=== PATIENT | female | born 1985 | race Caucasian/White ===

== ENCOUNTER 2020-07-31 18:29 | Emergency (ER) | payer MEDICAID, SELFPAY ==
[2020-07-31] VITALS (9 sets, daily range): BP systolic 121–173; BP diastolic 0–98; PULSE 80–112; RESP 14–18; TEMP 36.6–37.1; O2SAT 97–100; BMI 42.3; BMI 42.0
--- NOTE | 2020-07-31 18:45 | XR_ITS ---
PROCEDURE INFORMATION: Exam: XR Right Ankle Exam date and time: 07/31/2020 6:45 PM Age: 34 years old Clinical indication: Injury or trauma; Fall; Blunt trauma; Right; Patient HX: Twisted ankle 1 hour ago. Pain to medial leg TECHNIQUE: Imaging protocol: XR Right ankle. Views: 3 or more views. COMPARISON: No relevant prior studies available. FINDINGS: Bones/joints: There is a fracture of the mediolateral and posterior malleolus with posterior dislocation of the foot and large amount of soft tissue swelling. Soft tissues: Soft tissue swelling is seen. IMPRESSION: There is a fracture of the mediolateral and posterior malleolus with posterior dislocation of the foot and large amount of soft tissue swelling.
--- NOTE | 2020-07-31 19:03 | HMH.EDUTC ---
[facility] Disposition Clinical Impression: Ankle fracture Qualifiers: Encounter type: initial encounter Fracture type: closed Laterality: right Qualified Code(s): S82.891A - Other fracture of right lower leg, initial encounter for closed fracture Disposition: Still a Patient Condition on Discharge: Good Instructions: DI for Moderate Sedation Referrals: Provider,Referral, MD [Primary Care Provider] - Time of Disposition: 19:08 Medical Decision Making - Jesus Inquiry Pt receiving controlled substance: No Jesus was queried for this patient: No Vital Signs: 07/31/20 18:30 07/31/20 18:52 Temperature 98.8 F 98.8 F Temperature Source Oral Oral Pulse Rate [Right] 84 94 H Respiratory Rate 16 18 Blood Pressure [Right Arm] 122/70 132/82 Blood Pressure Mean [Right Arm] 87 98 Blood Pressure Source [Right Arm] Automatic Cuff Blood Pressure Position [Right Arm] Sitting 02 Sat by Pulse Oximetry 98 99 - Lab Data Lab Results 07/31/20 19:28: WBC 9.2, RBC 4.71, Hgb 12.0 L, Hct 40.4, MCV 85.9, MCH 25.5 L, MCHC 29.7 L, RDW 13.1, Plt Count 370, MPV 7.2 L, Neut % (Auto) 74.6, Lymph % (Auto) 16.4, [place] % (Auto) 7.3, Eos % (Auto) 1.3, Baso % (Auto) 0.4, Neut # (Auto) 6.9, Lymph # (Auto) 1.5, [place] # (Auto) 0.7, Eos # (Auto) 0.1, Baso # (Auto) 0.0 Result diagrams: 07/31/20 19:28 Orders (Tests/Meds): ED MEDICATIONS Discontinued Medications Generic Name Dose Route Start Last Admin Trade Name Freq PRN Reason Stop Dose Admin Morphine Sulfate 4 mg 07/31/20 19:22 07/31/20 19:24 Morphine 4mg/Ml Syringe IV 07/31/20 19:23 4 mg ONCE ONE Administration Ondansetron HCl 4 mg 07/31/20 19:22 07/31/20 19:24 Ondansetron 4mg/2ml Vial IV 07/31/20 19:23 4 mg ONCE ONE Administration ORDERS Category Date Time Status Comprehensive Metabolic Panel Stat Lab 05/15/21 19:28 Received Serum [HCG Qualitative, Serum] Stat Lab 07/31/20 19:28 Received - Radiology Data #1 Image(s): Ankle (right) Image Reviewed: Yes I have reviewed radiologist's interpretation IMPRESSION: There is a fracture of the mediolateral and posterior malleolus with posterior dislocation of the foot and large amount of soft tissue swelling. Medical Decision Narrative: After viewing xray Spoke with Dr Marx and he viewed xray and agreed, patient transferred to ED for further treatment, evaluation and reduction Spoke with ED staff and patient was moved to room 1 via wheel chair without complications [facility] HPI - General Stated complaint: ao 07/31@17:30 INJURED r ANKLE Time Seen by Provider: 07/31/20 19:03 Mode of Arrival: Ambulatory Source of Information: Patient Limitations: No Limitations Description of Symptoms (Recalled from Triage Doc. by RN): pt was weed eating and twisted her R ankle. HEENT Symptoms (Recalled from RN notes): No Resp Symptoms (Recalled from RN notes): No Skin Symptoms (Recalled from RN notes): No MS Symptoms (Recalled from RN notes): Yes (R ankle pain) Functional Status (Recalled from RN notes): na - History of Present Illness Provider Complaint: Patient states that she was weedeating when she twisted her right ankle and fell and all her weight landed on ankle State that she felt it pop and she scooted to get off her ankle and yelled for help family brought truck and picked her up due to her not being able to stand on it Denies numbness and reports pain with movement - Related Data Allergies Allergy/AdvReac Type Severity Reaction Status Date / Time CODEINE Allergy Mild I-HIVES Uncoded 03/06/17 15:17 DARVOCET Allergy Mild NA-NAUSEA Uncoded 03/06/17 15:17 From BACTRIM Allergy Mild NA-NAUSEA Uncoded 03/06/17 15:17 From KEFLEX Allergy Mild NA-NAUSEA Uncoded 03/06/17 15:17 PCN (PENICILLIN) Allergy Mild I-HIVES Uncoded 03/06/17 15:17 INGREDIENT: NO KNOWN - NO Allergy Unknown Uncoded 03/06/17 15:17 KNOWN DRUG ALLERGY - Worker's Comp Is this a Worker's Comp case?: No [facility] History
--- NOTE | 2020-07-31 19:24 | HMH.EDGENADL ---
ED Disposition Clinical Impression: Ankle fracture Qualifiers: Encounter type: initial encounter Fracture type: closed Laterality: right Qualified Code(s): S82.891A - Other fracture of right lower leg, initial encounter for closed fracture Disposition: Home, Self-Care Condition on Discharge: Good Instructions: DI for Moderate Sedation Prescriptions: Hydrocod/Acet 5/325 mg [Mcalister 5/325mg tablet] 1 tab PO Q6HP PRN #12 tab PRN Reason: pain Prescription Printed Referrals: Provider,MD Adeline [Primary Care Provider] - Felipe Vidal MD [Staff Physician] - - Critical Care Critical Care Time: No Attestation: On 07/31/20, the high probability of a clinically significant, sudden or life threatening deterioration of the following system(s) required my full and direct attention, intervention and personal management. The time I documented below is in addition to time spent performing reported procedures but includes the following listed in this critical care notation. Medical Decision Making - Medical Records Medical records reviewed: Yes: I reviewed the patient's medical records. - Jesus Inquiry Pt receiving controlled substance: No Vital Signs: 07/31/20 18:30 07/31/20 18:52 Temperature 98.8 F 98.8 F Temperature Source Oral Oral Pulse Rate [Right] 84 94 H Respiratory Rate 16 18 Blood Pressure [Right Arm] 122/70 132/82 Blood Pressure Mean [Right Arm] 87 98 Blood Pressure Source [Right Arm] Automatic Cuff Blood Pressure Position [Right Arm] Sitting 02 Sat by Pulse Oximetry 98 99 - Lab Data Lab results reviewed: Yes: I reviewed the patient's lab results. Lab Results 07/31/20 19:28: WBC 9.2, RBC 4.71, Hgb 12.0 L, Hct 40.4, MCV 85.9, MCH 25.5 L, MCHC 29.7 L, RDW 13.1, Plt Count 370, MPV 7.2 L, Neut % (Auto) 74.6, Lymph % (Auto) 16.4, [place] % (Auto) 7.3, Eos % (Auto) 1.3, Baso % (Auto) 0.4, Neut # (Auto) 6.9, Lymph # (Auto) 1.5, [place] # (Auto) 0.7, Eos # (Auto) 0.1, Baso # (Auto) 0.0 07/31/20 19:28: Sodium 139, Potassium 3.8, Chloride 108 H, Carbon Dioxide 25, Anion Gap 9.8, BUN 12, Creatinine 0.60, Estimated Creat Clear 104, Estimated GFR 114, Est GFR ( Amer) 138, Glucose 118 H, Calcium 8.9, Total Bilirubin 0.4, AST 44 H, ALT 46, Alkaline Phosphatase 69, Total Protein 7.6, Albumin 4.2, Globulin 3.4 H, Albumin/Globulin Ratio 1.2 07/31/20 19:28: Serum HCG, Qual Negative Result diagrams: 07/31/20 19:28 07/31/20 19:28 Orders (Tests/Meds): ED MEDICATIONS Discontinued Medications Generic Name Dose Route Start Last Admin Trade Name Joshua PRN Reason Stop Dose Admin Morphine Sulfate 4 mg 07/31/20 19:22 07/31/20 19:24 Morphine 4mg/Ml Syringe IV 07/31/20 19:23 4 mg ONCE ONE Administration Ondansetron HCl 4 mg 07/31/20 19:22 07/31/20 19:24 Ondansetron 4mg/2ml Vial IV 07/31/20 19:23 4 mg ONCE ONE Administration ORDERS Category Date Time Status CT ankle RT wo con Stat Cat Scan 07/31/20 19:54 Taken Medical Decision Narrative: Arrival patient's vital signs are stable, patient has isolated injury to her right lower extremity, no head trauma loss consciousness, does not hurt in other extremities or chest or abdomen or pelvis. X-rays were obtained, patient initially went to urgent care and was sent here. Patient's x-ray is significant for trimalleolar fracture with dislocation of of tibia on calcaneus, patient had consult with orthopedic surgery who recommended reduction, patient was sedated and used, repeat x-rays demonstrated appropriate reduction, patient films reviewed with orthopedic surgery who agreed to follow patient up in clinic outpatient. Patient was amenable to plan, after CT scan was performed patient was discharged home, will follow up was prescribed Mcalister for pain control. General Adult HPI - General Chief complaint: Extremity Injury, Lower Stated complaint: ao 07/31@17:30 INJURED r ANKLE Time Seen by Provider: 07/31/20 19:03 Mode of Arrival: Am
[2020-07-31 19:35] LABS: Basophils % 0.4 % (0.1-2.0); Eosinophils # 0.1 K/mm3 (0.0-0.4); Eosinophils % 1.3 % (0.1-12.0); Hematocrit 40.4 % (37.0-47.0); Lymphocytes # 1.5 K/mm3 (0.7-4.5); Lymphocytes % 16.4 % (10-50); Mean Corpuscular HGB Conc 29.7 g/dL (31.8-35.4); Mean Corpuscular Hemoglobin 25.5 pg (27.0-31.2); Mean Corpuscular Volume 85.9 fl (81-99); Mean Platelet Volume 7.2 fl (7.4-10.4); Monocytes # 0.7 K/mm3 (0.1-1.0); Monocytes % 7.3 % (1.7-9.3); Neutrophils # 6.9 K/mm3 (1.8-7.8); Neutrophils % 74.6 % (37.0-80.0); Platelet Count 370 K/mm3 (142-424); Red Blood Count 4.71 M/mm3 (4.20-5.40); Red Cell Distribution Width 13.1 % (11.5-17.5); White Blood Count 9.2 K/mm3 (4.8-10.8)
[2020-07-31 19:44] LABS: HCG Qualitative, Serum Negative (Negative)
[2020-07-31 19:46] LABS: Alanine Aminotransferase 46 U/L (12-78); Albumin Level 4.2 g/dl (3.5-5.0); Albumin/Globulin Ratio 1.2 (1.1-1.8); Alkaline Phosphatase 69 U/L (38-126); Anion Gap 9.8 mEq/L (5-15); Aspartate Amino Transferase 44 U/L (14-36); Bilirubin,Total 0.4 mg/dl (0.2-1.3); Blood Urea Nitrogen 12 mg/dl (7-17); Calcium 8.9 mg/dl (8.4-10.2); Carbon Dioxide 25 mmol/L (22.0-30.0); Chloride 108 mmol/L (98-107); Creatinine Clearance Estimated 104 mL/min (50-200); Estimated Glomerular Filt Rate 114 ml/min (>60); GFR (African American) 138 ML/MIN (>60); Globulin 3.4 g/dL (1.3-3.2); Glucose 118 mg/dl (74-100); Potassium 3.8 mmoL/L (3.5-5.1); Sodium 139 mmol/L (136-145); Total Protein,Serum 7.6 g/dl (6.3-8.2)
--- NOTE | 2020-07-31 19:53 | XR_ITS ---
PROCEDURE INFORMATION: Exam: XR Right Ankle Exam date and time: 07/31/2020 7:53 PM Age: 34 years old Clinical indication: Injury or trauma; Fall; Blunt trauma; Right; Injury date: 07/31/20; Patient HX: Fell and twisted ankle; Additional info: Post red TECHNIQUE: Imaging protocol: XR Right ankle. Views: 1 or 2 views. COMPARISON: CR XR ANKLE RT MIN 3V 07/31/2020 6:47 PM FINDINGS: Bones/joints: Previously described ankle dislocation has been reduced. Persistent mild displacement of the previously described fractures particularly at the lateral malleolus. Soft tissues: Soft tissue swelling is seen. IMPRESSION: Post reduction.
--- NOTE | 2020-07-31 19:54 | CT_ITS ---
PROCEDURE INFORMATION: Exam: CT Right Lower Extremity Without Contrast, Ankle Exam date and time: 07/31/2020 7:54 PM Age: 34 years old Clinical indication: Injury or trauma; Fall; Blunt trauma; Right; Injury date: 07/31/20; Patient HX: Fell in hole and twisted ankle; Additional info: Post red TECHNIQUE: Imaging protocol: CT of the Right lower extremity without contrast was performed. Exam focused on the ankle. 3D rendering (Not supervised by radiologist): MIP and/or 3D reconstructed images were created by the technologist. Radiation optimization: All CT scans at this facility use at least one of these dose optimization techniques: automated exposure control; mA and/or kV adjustment per patient size (includes targeted exams where dose is matched to clinical indication); or iterative reconstruction. COMPARISON: CR XR ANKLE RT 2V 07/31/2020 7:55 PM FINDINGS: Bones/joints: There is a oblique fracture of the distal fibula that is minimally displaced. Posterior malleolus coronal plane fracture extends between the posterior malleolus and medial malleolus with approximately 2 mm of posterior displacement. Posterior tibial plafond articular surface is involved. Os naviculare incidentally noted. Soft tissues: Moderate soft tissue swelling throughout the ankle is present. IMPRESSION: There is a oblique fracture of the distal fibula that is minimally displaced. Posterior malleolus coronal plane fracture extends between the posterior malleolus and medial malleolus with approximately 2 mm of posterior displacement. Posterior tibial plafond articular surface is involved.
== END 2020-07-31 21:22 | disposition home or self-care (01) ==
LOC: UTC 19:12 → ER 19:15
PROVIDERS: Emergency Provider Emergency Medicine
DX: S82.831A Other fracture of upper and lower end of right fibula, initial encounter for closed fracture (principal); X50.1XXA Overexertion from prolonged static or awkward postures, initial encounter; Y92.017 Garden or yard in single-family (private) house as the place of occurrence of the external cause
CPT/HCPCS: 29515; 27788; 73600; 73610; 73700; 80053; 84703; 85025; 96365; 96375; 99152; 99285; J2405

== ENCOUNTER → 2020-08-04 12:21 | Outpatient (CLI) | payer MEDICAID, SELFPAY ==
[2020-08-04 13:12] LABS: Urine Pregnancy, HCG Qual. Negative (Negative)
== END ==
PROVIDERS: Visit Provider Orthopaedic Surgery
DX: Z01.818 Encounter for other preprocedural examination (principal); Z11.52 Encounter for screening for COVID-19; S82.891A Other fracture of right lower leg, initial encounter for closed fracture
CPT/HCPCS: 81025; U0003

== ENCOUNTER 2020-08-05 08:27 | Day surgery (SDC) | payer MEDICAID, SELFPAY ==
[2020-08-05] VITALS (11 sets, daily range): BP systolic 104–149; BP diastolic 50–83; PULSE 69–97; RESP 16–18; TEMP 36.2–38; O2SAT 94–98; BMI 42.0
--- NOTE | 2020-08-05 | XR_ITS ---
PROCEDURE: XR ANKLE RT 2V CLINICAL INDICATION: ORIF RT ANKLE COMPARISON: No exams were available for comparison FINDINGS: Fluoroscopy time: 58 seconds. Multiple images are submitted demonstrating placement of a lateral bone plate and cortical screws stabilizing the oblique distal fibular fracture with 2 screws placed in the medial malleolus stabilizing the medial malleolar fracture. Final images show good alignment with preservation of the ankle mortise. IMPRESSION: Good alignment status post ORIF tib fib fracture Dictated by: Edson Quinn MD 08/05/2020 15:59 Edson Quinn MD in [place] 08/05/2020 15:59
--- NOTE | 2020-08-05 10:43 | P.PN_ITS ---
[facility] Anesthesia Checklist - Patient Identification Patient Identification: Arm Band - Structural Data Admitted From: Home Planned Operative Procedure/s: ORIF right ankle Verified Documents: Surgical Consent, History and Physical - Additional verifications Anesthesia Reactions: No Hx Blood Transfusions: No Blood Transfusion Reaction: No - Airway Assessment C-Spine Mobility Assessed: Yes TMJ Mobility Assessed: Yes Dentition: Poor Dentition - Neurological Assessment Level of Consciousness: Awake, Alert - Anesthesia Plan Anesthesia Risk discussed: Yes Anesthesia Plan: Verified ASA Class: III Anesthesia Type: General [facility] History Medical History: Denies:: Cancer, Diabetes Mellitus Type 1, Diabetes Mellitus Type 2, Internal Pacemaker, MRSA, Seizures *Have you ever received a pneumonia vaccine?: No *Have you received a flu vaccine this season?: No Other Medical History: Denies: Blood Transfusion Reaction Anesthesia experience/problems:: None Laterality Cases: Bilateral: Tonsillectomy Other Surgeries: No: Pacemaker Amputation: No Fractures: No - *Social History Last grade of school completed: 11th or 12th Smoking Status: Former smoker #Yrs smoked (if former smoker): 15 Alcohol Intake: never Substance Use Type: heroin *Occupational Status:: employed Housing: house Household Members: family *Travel in the last 8 weeks: None Family Hx:: Cancer, Diabetes
--- NOTE | 2020-08-05 13:39 | HMH.ANESI ---
[facility] Anesthesia Record Part I Intake, IV Amount: 1,300 Estimated blood loss (mL): 30 Urine output (mL): 0 Blood Pressure: 121/72 SaO2: 95 Pulse Rate: 95 Respiratory Rate: 18 Temperature: 97.1 F Patient is:: Awake Stable to PACU at:: 13:18
--- NOTE | 2020-08-05 15:40 | HMH.OPNOTE ---
Date of procedure: 08/05/20 Pre-op Diagnosis:: Closed, fracture dislocation, RIGHT ankle Post-op Diagnosis:: Same Procedure performed:: Open reduction internal fixation, right ankle Surgeon:: Felipe Vidal MD Lab Animal Technician(s):: Yumiko Duarte SHEET METAL DUCT INSTALLER HELPER:: Other (Brad Dawkins) Anesthesia: GETA, regional (Adductor canal and popliteal nerve blocks) Estimated blood loss (mL): 5 Clinical Note:: Patient is a 34-year-old female who sustained a closed fracture dislocation of his RIGHT ankle following a twisting injury at home five days ago. A closed reduction of the ankle was performed in the ER which improved the position slightly. But there was still persistent subluxation of the ankle joint with displacement and shortening at the lateral malleolus fracture. There was evidence of significant callus formation from the previous injury. The posterior malleolus fragment was very small and in involving less than 1/5 of the articular surface. An open reduction and internal fixation of the RIGHT ankle was indicated to reduce the joint and stabilize the fracture, to relieve pain and improve function. Following a detailed discussion about the management options including both the nonoperative and operative, patient elected for surgical remediation. Please refer to my office note for full details. Operative findings:: Preoperative imaging findings and diagnosis correlate with the intraoperative findings. There is a displaced law B type lateral malleolus fracture with a displaced, comminuted fracture of the medial malleolus. There is a significant lateral talar shift which was easily reducible under anesthesia. The posterior malleolus fracture is small and is well reduced after fixing the medial and lateral malleolar fractures.? The inferior tibiofibular syndesmosis was noted to be stable after fixation of the medial and lateral malleolar fractures; therefore, syndesmosis fixation is deemed unnecessary. Operative note:: Prior to surgery patient was met in the preoperative assessment area and positively identified. I again reviewed the clinical and imaging findings, diagnosis, management options including both nonsurgical and surgical and the expected results. Given the clinical and radiological findings, I have recommended either a closed reduction and external fixator application or an open reduction and internal fixation of the distal fibula fracture, medial malleolar fracture and stabilization of the syndesmosis as indicated intraoperatively.? I have outlined where the incisions would be on the skin. Risks of surgery discussed include but are not limited to- infection, injury to nerves and blood vessels, injury to tendons, compartment syndrome, DVT/PE, malunion, nonunion, stiffness, CRPS (complex regional pain syndrome- pain, sensory and temperature changes, swelling and stiffness), painful hardware, loss of fixation, arthritis, incomplete relief of pain, incomplete return of function, and likely need for further surgery in future and also the risks of anesthesia including heart attack, stroke, and .? I have also explained how additional surgery may be required and specifically discussed about the likely need for syndesmosis screw removal prior to weightbearing if one is placed.? I explained the weightbearing status, immobilization required, the likely need for physical therapy, the possibility of stiffness, chronic pain and we've also discussed the option of nonsurgical treatment. The patient expressed full understanding and asked appropriate questions. All the questions were answered by me, and patient verbalized a good understanding.? She wished to proceed with surgery as planned. The patient was brought to the operating room, placed supine on the operating table, and a general anesthesia was administered. All the bony prominences were appropriately padded. A small bump was placed under the RIGHT hip. A well-padded tourniquet cuff was applied over the RIGHT upper thigh. The
--- NOTE | 2020-08-06 07:27 | HMH.ANESII ---
[facility] Anesthesia Record Part II Discharge Time: 13:38 Destination: Surgical Day Care (OP Surgery) PACU nurse assessment reviewed?: Yes Patient Condition:: Good Anesthesia Complications:: None Swallowing reflex intact?: Yes Cyanosis?: No Blood Pressure: 124/70 Pulse Rate: 81 Temperature: 97.4 F Mental Status: Alert & Oriented Pain level:: 0 Nausea and/or vomitting:: None Intake, IV Amount: 0
[2020-08-06 07:28] VITALS: BP 124/70; PULSE 81; TEMP 36.3
== END 2020-08-05 14:31 | disposition home or self-care (01) ==
LOC: OR 08:28
PROVIDERS: Visit Provider Orthopaedic Surgery
PROC: (CPT 27792; principal; 2020-08-05 10:15)
DX: S82.61XA Displaced fracture of lateral malleolus of right fibula, initial encounter for closed fracture (principal); W01.0XXA Fall on same level from slipping, tripping and stumbling without subsequent striking against object, initial encounter; Z88.8 Allergy status to other drugs, medicaments and biological substances
CPT/HCPCS: 27792; 73600; 76000; 96374; C1713; C1776; J2405; J2710

== ENCOUNTER → 2020-08-18 15:36 | Outpatient (CLI) | payer MEDICAID, SELFPAY ==
--- NOTE | 2020-08-18 15:40 | XR_ITS ---
PROCEDURE: XR ANKLE RT MIN 3V CLINICAL INDICATION: sp ORIF rt ankle, sx 08/05/20; cast applied COMPARISON: 07/31/2020 FINDINGS: Status post ORIF right ankle. There is a lateral fibular bone plate with multiple cortical screws with good alignment. Two screws are present through the medial malleolar region with good alignment. The ankle mortise is preserved. There is a cast in place. Other findings:None. IMPRESSION: Good alignment status post ORIF Dictated by: Edson Quinn MD 08/18/2020 18:17 Edson Quinn MD in [place] 08/18/2020 18:17
== END ==
PROVIDERS: Visit Provider Orthopaedic Surgery
DX: Z09 Encounter for follow-up examination after completed treatment for conditions other than malignant neoplasm (principal); S82.891D Other fracture of right lower leg, subsequent encounter for closed fracture with routine healing
CPT/HCPCS: 73610

== ENCOUNTER → 2020-09-15 08:55 | Outpatient (CLI) | payer MEDICAID, SELFPAY ==
--- NOTE | 2020-09-15 08:59 | XR_ITS ---
PROCEDURE: XR ANKLE RT MIN 3V CLINICAL INDICATION: sp ORIF RT ankle, dos 08/05/20; AFTER CAST REMOVAL Follow-up fracture COMPARISON: CR XR ANKLE RT 2V from 07/31/2020 CR XR ANKLE RT MIN 3V from 07/31/2020 CR XR ANKLE RT MIN 3V from 08/18/2020 FINDINGS: Status post ORIF distal tib fib with lateral fibular bone plate cortical screws and 2 screws within the medial aspect of the distal tibia. Good alignment avulsion fracture posterior distal tibia. The joint spaces are well-preserved. No significant degenerative/arthritic changes. No erosive changes evident. Other findings:None. IMPRESSION: Good alignment status post ORIF distal tib fib Dictated by: Edson Quinn MD 09/15/2020 10:58 Edson Quinn MD in [place] 09/15/2020 10:58
== END ==
PROVIDERS: Visit Provider Orthopaedic Surgery
DX: S82.891A Other fracture of right lower leg, initial encounter for closed fracture (principal)
CPT/HCPCS: 73610

== ENCOUNTER 2020-09-15 09:33 | Outpatient (RCR) | payer MEDICAID, SELFPAY | END 2020-09-15 10:30 | disposition home or self-care (01) | LOC: PT 09:33 | PROVIDERS: Visit Provider Orthopaedic Surgery | DX: S82.891A Other fracture of right lower leg, initial encounter for closed fracture (principal) | CPT/HCPCS: 97760 ==

== ENCOUNTER 2020-10-14 13:00 | Outpatient (RCR) | payer MEDICAID, SELFPAY ==
--- NOTE | 2020-09-24 15:59 | HMH.PTOPEV ---
PT Outpatient Evaluation Rehab PT Outpatient Evaluation Start: 09/24/20 15:08 Freq: Status: Active Protocol: Document 09/24/20 15:38 ALEJANDRINA (Rec: 09/24/20 15:59 ALEJANDRINA [id number]) Electronically Signed By Lorenzo Ramos, PT 09/24/20 15:38 Outpatient Therapy Subjective History Subjective History Patient is a 34 year old female presenting to outpatient PT with reports of R foot/ankle pain S/P R ORIF secondary to closed tib/fib fracture/dislocation Hackett type B. Initial injury occurred while doing yard work at home when she stepped in a hole resulting in fracture. Surgery performed 08/05 per patient report. She was casted until 09/15/20 per patient report. She has been set up with tall CAM walker, but ambulates into clinic today without using 1 crutch. No other comorbidities to report. Chief Complaint Pain,Stiff Symptoms Relieved By Rest/Positioning,Ice,Elevation Symptoms Aggravated By Standing,Physical Activity, Walking Prior Functional Limitations None Current Functional Limitations Housework,Standing,Squatting, Recreation Activity,Walking, Stairs,Balance Symptom Description Intermittent Level of pain today (0-10) 0 Pain scale - at its best (0-10) 0 Pain scale - at its worst (0-10) 4 Ankle/Foot Eval Gait Observation General Gait Pattern Observation Antalgic Gait,Decrease Weight Bear (R) Assistive Device Ambulation Assistive Device Axillary Crutches Palpation Tenderness right Ankle/Foot Palpation Findings Tenderness Ankle/Foot Palpation Overall Comment about surgical incisions 2/4 ROM Ankle/Foot Dorsiflexion w/Knee Extended 9 Active Range Motion (degrees) Ankle/Foot Plantar Flexion Active Range 48 of Motion (degrees) Ankle/Foot Eversion Active Range of 22 Motion (degrees) Ankle/Foot Inversion Active Range of 32 Motion (degrees) Ankle/Foot ROM Limitations Soft Tissue Tightness Great Toe ROM Reason Not Measured Within Functional Limits MMT Ankle Dorsiflexion Strength Grade 4 Good Ankle Plantarflexion Strength Grade 4 Good Foot Eversion Strength Grade 4- Good- Foot Inversion Strength Grade 4- Good- Special Tests
== END 2020-10-14 13:05 | disposition home or self-care (01) ==
LOC: PT 13:00
PROVIDERS: Visit Provider Orthopaedic Surgery
DX: S82.891A Other fracture of right lower leg, initial encounter for closed fracture (principal)
CPT/HCPCS: 97110; 97112; 97163

== ENCOUNTER → 2020-11-16 09:31 | Outpatient (CLI) | payer MEDICAID, SELFPAY ==
--- NOTE | 2020-11-16 09:33 | XR_ITS ---
PROCEDURE: XR ANKLE RT MIN 3V CLINICAL INDICATION: ORIF rt ankle COMPARISON: CR XR ANKLE RT MIN 3V from 07/31/2020 CR XR ANKLE RT 2V from 07/31/2020 CR XR ANKLE RT MIN 3V from 08/18/2020 CR XR ANKLE RT MIN 3V from 09/15/2020 FINDINGS: Good alignment status post ORIF distal tib fib. Ankle mortise is preserved. No evidence of prosthesis fracture. There is ununited small fracture fragment along the dorsal and distal tibia Other findings:None. IMPRESSION: No change, good alignment prior ORIF distal tib fib Dictated by: Edson Quinn MD 11/16/2020 12:39 Edson Quinn MD in [place] 11/16/2020 12:39
== END ==
PROVIDERS: Visit Provider Orthopaedic Surgery
DX: S82.891A Other fracture of right lower leg, initial encounter for closed fracture (principal)
CPT/HCPCS: 73610

== ENCOUNTER → 2020-12-22 08:54 | Outpatient (CLI) | payer MEDICAID, SELFPAY | PROVIDERS: Visit Provider Nurse Practitioner | DX: Z20.822 Contact with and (suspected) exposure to COVID-19 (principal); U07.1 COVID-19 | CPT/HCPCS: C9803; U0003; U0005 ==

== ENCOUNTER 2022-02-20 14:00 | Outpatient (RCR) | payer MEDICAID, SELFPAY | END 2022-02-20 14:05 | disposition home or self-care (01) | LOC: OT 14:00 | PROVIDERS: Visit Provider Nurse Practitioner Family | DX: M25.521 Pain in right elbow (principal) | CPT/HCPCS: 97010; 97014; 97035; 97110; 97140; 97165; G0283 ==

== ENCOUNTER → 2022-10-18 10:55 | Outpatient (CLI) | payer MEDICAID, SELFPAY | PROVIDERS: PCP Nurse Practitioner; Visit Provider Nurse Practitioner | DX: R10.2 Pelvic and perineal pain (principal); N93.8 Other specified abnormal uterine and vaginal bleeding ==

== ENCOUNTER → 2022-11-01 15:08 | Outpatient (CLI) | payer MEDICAID, SELFPAY ==
--- NOTE | 2022-11-01 15:08 | US_ITS ---
PROCEDURE: US TRANSVAGINAL CLINICAL INDICATION: pelvic pain, DUB COMPARISON: No exams were available for comparison FINDINGS: Transvaginal sonographic images of the pelvis were obtained. UTERUS: 7.2 cm x 5.7 cmx 4.0 cm with a combined endometrial thickness of 6.8mm. The uterus is retroverted and retroflexed. LEFT OVARY: 4.1 cmx2.3 cmx2.0 cm with a volume of 9.9ml.The ovary has a polycystic appearance with multiple small peripheral follicles. RIGHT OVARY: 4.7 cmx 2.4 cmx2.1 cm with a volume of 12.3ml. There is a prominent follicle in the right ovary measuring 2.4 cm x 1.0 cm. Both ovaries are seen and appear normal. Doppler flow to both ovaries are seen. There is trace fluid in the cul-de-sac. IMPRESSION: 1. Normal-sized retroverted, retroflexed uterus. 2. The endometrium is normal measuring 6.8 mm. 3. Left ovary has a polycystic appearance. 4. Right ovary has a prominent follicle measuring 2.4 cm x 1 cm. 5. There is trace fluid in the cul-de-sac. Dictated by: Ron Curry MD 11/01/2022 16:47 Ron Curry MD in [place] 11/01/2022 16:47
== END ==
PROVIDERS: PCP Nurse Practitioner; Visit Provider Nurse Practitioner
DX: N93.8 Other specified abnormal uterine and vaginal bleeding (principal); R10.2 Pelvic and perineal pain
CPT/HCPCS: 76830